=== PATIENT | female | born 2000 | race Caucasian/White ===

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

== ENCOUNTER 2022-03-20 21:45 | Emergency (ER) | payer OTHER ==
[~2022-03-20] VITALS: Ht 170.2 cm; Wt 101.6 kg
[2022-03-20 22:25] VITALS: BP 118/89
--- NOTE | 2022-03-20 23:48 | NUR ---
PT AMBULATED TO BED AT THIS TIME
--- NOTE | 2022-03-20 23:50 | NUR ---
LAB AT BEDSIDE.
[2022-03-20 23:58] LABS: APPEARANCE,URINE SL CLOUDY (CLEAR); BILIRUBIN,URINE NEGATIVE (NEGATIVE); BLOOD, URINE NEGATIVE (NEGATIVE); COLOR,URINE YELLOW (YELLOW); LEUKOCYTE ESTERASE ,URINE NEGATIVE (NEGATIVE); NITRITE, URINE NEGATIVE (NEGATIVE); UGLUCOSE NEGATIVE (NEGATIVE)
[2022-03-20 23:58] LABS: BASOPHILS % (AUTO) 0.7 % (0.0-2.0); EOSINOPHILS # (AUTO) 0.5 K/uL (0-0.4); EOSINOPHILS % (AUTO) 6.6 % (0.0-4.0); HEMATOCRIT 39.4 % (36-48); HEMOGLOBIN 13.1 g/dL (12.0-16.0); LYMPHOCYTES # (AUTO) 2.7 K/uL (2.5-16.5); LYMPHOCYTES % (AUTO) 38.2 % (20.5-51.1); MEAN CORPUSCULAR HEMOGLOBIN 29 pg (27-31); MEAN CORPUSCULAR HGB CONC 33 g/dL (33-37); MEAN CORPUSCULAR VOLUME 87.2 fL (80-94); MONOCYTES # (AUTO) 0.5 K/uL (0.8-1.0); MONOCYTES % (AUTO) 7.7 % (1.7-9.3); NEUTROPHILS # (AUTO) 3.3 K/uL (1.8-7.7); NEUTROPHILS % (AUTO) 46.8 % (42.2-75.2); PLATELET COUNT (AUTO) 310 K/uL (140-450); RED BLOOD CELL COUNT(AUTO) 4.52 MIL/uL (4.20-5.40); RED CELL DISTRIBUTION WIDTH 14.4 % (11.6-13.7); WHITE BLOOD COUNT (AUTO) 7.1 K/uL (4.8-10.8)
--- NOTE | 2022-03-21 00:08 | NUR ---
21 Y/O F BIB SELF C/O EPIGASTRIC PAIN X4 DAYS THAT WORSENS AFTER EATING, FEELLS BLOATED, REPORTS TAKING PEPTO WITH NO RELIEF. DENIES N/V, REPORTS TWO EPISODES OF DIARRHEA TODAY, DENIES FEVERS, CHILLS. PMH: DENIES NKA
[2022-03-21 00:19] LABS: ALBUMIN 3.4 g/dL (3.4-5.0); ANION GAP 11.1 (8-16); CREATININE 0.8 mg/dL (0.6-1.3); POTASSIUM 4.1 mmol/L (3.5-5.1); TOTAL BILIRUBIN 0.3 mg/dL (0.0-1.0)
[2022-03-21] MEDS ORDERED: KETOROLAC 30 MG/ML VIAL IM ONE (01:50)
[2022-03-21] MEDS ORDERED: DICYCLOMINE HCL LIQUID 20 MG, ALUMINUM HYD/MAG/SIMETHICONE 30 ML, LIDOCAINE VISCOUS 2% ... PO ONE ×3 (01:50)
[2022-03-21] MEDS ORDERED: DICYCLOMINE HCL LIQUID 10 MG/5 ML UDC ONE (02:10)
[2022-03-21] MEDS ORDERED: ALUMINUM HYD/MAG/SIMETHICONE 30 ML UDC ONE ×2 (02:10→02:18)
--- NOTE | 2022-03-21 02:27 | NUR ---
ULTRASOUND AT BEDSIDE.
[2022-03-21] MEDS ORDERED: MAG-27 PO (03:58)
[2022-03-21 04:09] VITALS: BP 123/68
--- NOTE | 2022-03-21 04:11 | NUR ---
Patient discharged with v/s stable. Written and verbal after care instructions given and explained. Patient alert, oriented and verbalized understanding of instructions. Ambulatory with steady gait. All questions addressed prior to discharge. ID band removed. Patient advised to follow up with PMD. Rx of MAG HYDROX/ALUMINUM HYD/SIMETH given. Opportunity to ask questions provided and answered.
== END 2022-03-21 04:10 | disposition home or self-care (01) ==
LOC: MED 21:45
DX: R10.13 Epigastric pain (principal); R19.7 Diarrhea, unspecified; Z79.899 Other long term (current) drug therapy
CPT/HCPCS: 36415; 76705; 80053; 81003; 81025; 83690; 85025; 96372; 99285; J1885; Q0092

== ENCOUNTER 2022-07-29 12:03 | Emergency (ER) | payer OTHER ==
[~2022-07-29] VITALS: Ht 170.2 cm; Wt 98.9 kg
[~2022-07-29 12:03] MED LIST: MAG-27 PO
[2022-07-29 12:18] VITALS: BP 110/73
[2022-07-29] MEDS ORDERED: KETOROLAC 30 MG/ML VIAL IM ONE (13:50)
--- NOTE | 2022-07-29 14:00 | NUR ---
21/F PRESENTS TO ED WITH C/O SUDDEN ONSET OF LOWER BACK PAIN. PATIENT REPORTS PAIN STARTED SHORTLY AFTER MOVING BOXES AT WORK. DENIES ANY OTHER INJURY OR TRAUMA TO AREA, DENIES TAKING MEDS FOR THE SYMPTOMS.
[2022-07-29] MEDS ORDERED: IBUP-2213 PO (14:41)
[2022-07-29] MEDS ORDERED: CYCL-711 PO (14:41)
[2022-07-29] MEDS ORDERED: LID5T TP (14:41)
--- NOTE | 2022-07-29 15:03 | NUR ---
Patient discharged with v/s stable. Written and verbal after care instructions ABOUT LOW BACK STRAIN OR SPRAIN given and explained. Patient alert, oriented and verbalized understanding of instructions. Ambulatory with steady gait. All questions addressed prior to discharge. ID band removed. Patient advised to follow up with PMD. Rx of FLEXERIL AND LIDODERM PATCHES given. Patient educated on indication of medication including possible reaction and side effects. Opportunity to ask questions provided and answered.
== END 2022-07-29 15:03 | disposition home or self-care (01) ==
LOC: MED 12:03
DX: M54.50 Low back pain, unspecified (principal)
CPT/HCPCS: 81025; 96372; 99283; J1885

== ENCOUNTER 2023-03-08 10:15 | Emergency (ER) | payer MEDICAID, OTHER ==
[~2023-03-08] VITALS: Ht 170.2 cm; Wt 99.1 kg
[~2023-03-08 10:15] MED LIST changes: +CYCL-711 PO; +IBUP-2213 PO; +LID5T TP
[2023-03-08 10:32] VITALS: BP 117/75; PULSE 128; RESP 20; TEMP 101.1; O2SAT 95
--- NOTE | 2023-03-08 10:33 | NUR ---
pt swabbed for ADAN/FLU in triage and ambulated to lobby waiting to be seen by
--- NOTE | 2023-03-08 10:37 | NUR ---
requested urine sample, pt ambulated restroom.
[2023-03-08] MEDS ORDERED: IBUPROFEN 400 MG TAB PO ONE (11:05)
[2023-03-08] MEDS ORDERED: ACETAMINOPHEN 325 MG TAB PO ONE (11:05)
[2023-03-08] MEDS ORDERED: ACETAMINOPHEN 325 MG TAB ONE ×2 (12:09)
[2023-03-08] MEDS ORDERED: IBUPROFEN 400 MG TAB ONE (12:10)
--- NOTE | 2023-03-08 12:19 | NUR ---
pt swabbed for covid(alena), flu and strepx2. walked to lab
[2023-03-08] MEDS ORDERED: ACET-10509 PO (13:05)
[2023-03-08] MEDS ORDERED: IBUP-426 PO (13:05)
--- NOTE | 2023-03-08 13:20 | NUR ---
The patient's care was reviewed and supervised by CASSIUS UGARTE RN.
== END 2023-03-08 13:11 | disposition home or self-care (01) ==
LOC: MED 10:15
DX: J03.90 Acute tonsillitis, unspecified (principal); Z20.822 Contact with and (suspected) exposure to COVID-19; Z79.899 Other long term (current) drug therapy
CPT/HCPCS: 81002; 81025; 87081; 99283